=== PATIENT | female | born 1965 | race Caucasian/White ===

== ENCOUNTER 2022-08-15 16:44 | Outpatient (RCR) | payer OTHER, SELFPAY ==
--- NOTE | 2022-08-15 17:18 | PTOPEVAL1 ---
Assessment and note entered by JT File, PT Evaluation Information Assessment Status Evaluation Diagnosis adhesive capsulitis L shoulder Onset 08/06/22 Subjective Information patient reports she is having a frozen shoulder of the L shoulder. she reports she has been having stiffness and symptoms for 3-4 months. she reports she has had a bout of frozen shoulder of the L shoulder about 3 years ago. she reports no surgery , but she is diabetic. she reports she has the most pain and stiffness with stretching/reaching for an object. Reported Pain Level Pain Score 3: Self Report Assessment PT Clinical Summary mrs. sevilla is a 57 yo woman who presents to skilled PT services for evaluation and treatment of L shoulder pain, weakness, and decreased rom. she presents this date with signs and symptoms consistent with L shoulder adhesive capsulitis. she would benefit from skilled PT to improve her strength, rom, and functional reaching to return to her full prior level functional performance and quality of life. Plan of Care Interventions Electrical Stimulation,Hot Pack/Cold Pack,Manual Therapy,Neuro Re-education,Patient/Caregiver Educati,Therapeutic Activities,Therapeutic Exercise PT Services Indicated Yes Treatment Frequency and 2x weekly for 16 visits Duration These treatments will address the objective and functional deficits as defined above. The patient will be advanced safely and appropriately in order for the patient to progress towards his/her prior level of function. Additional exercises will be introduced and as well as a comprehensive home exercise program upon discharge, if needed, ?to ensure carryover of functional gains achieved in the clinic. This treatment plan has been reviewed and agreement upon by the patient.
== END 2022-09-12 16:16 | disposition home or self-care (01) ==
LOC: CHSPT 16:44
DX: M75.02 Adhesive capsulitis of left shoulder (principal)
CPT/HCPCS: 97014; 97110; 97140; 97161; G0283